=== PATIENT | female | born 1985 | race Caucasian/White ===

== ENCOUNTER 2018-05-18 23:03 | Emergency (ER) | payer MEDICAID, SELFPAY ==
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
[2018-05-18 23:04] VITALS: BP 181/142; PULSE 100; RESP 14; TEMP 37.4; O2SAT 99; BMI 29.0
[2018-05-18 23:14] VITALS: BP 181/142; PULSE 106; RESP 16; O2SAT 99
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
[2018-05-19] MEDS: Morphine 4 MG/ML Syringe IV (00:12)
[2018-05-19] MEDS: 0.9% Normal Saline 1,000 ML 150 ML IV (00:12)
[2018-05-19] MEDS: Ondansetron 4 MG/2 ML Vial IV (00:12)
[2018-05-19 01:20] VITALS: BP 147/104; PULSE 66; RESP 17; O2SAT 98
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
[2018-05-19] MEDS: oxyCODONE 5 MG Tablet 10 MG PO (02:02)
[2018-05-19] MEDS: Naproxen 500 MG Tablet PO (02:03)
[2018-05-19 02:05] VITALS: BP 147/103; PULSE 75; RESP 18; O2SAT 96
== END 2018-05-19 02:05 | disposition home or self-care (01) ==
PROVIDERS: Emergency Provider Emergency Medicine
DX: S09.90XA Unspecified injury of head, initial encounter (principal); S19.9XXA Unspecified injury of neck, initial encounter; S20.219A Contusion of unspecified front wall of thorax, initial encounter; Y04.2XXA Assault by strike against or bumped into by another person, initial encounter; Y93.9 Activity, unspecified; Y92.89 Other specified places as the place of occurrence of the external cause; Y99.9 Unspecified external cause status; I10 Essential (primary) hypertension; Z72.0 Tobacco use
CPT/HCPCS: 70450; 70498; 71046; 72125; 99285; J7030; Q9967; A4216; J2405